=== PATIENT | male | born 1965 | race Caucasian/White ===

== ENCOUNTER 2018-01-19 09:48 | Emergency (ER) | payer MEDICAID ==
[2018-01-19 09:53] VITALS: BMI 25.7
[2018-01-19] MEDS ORDERED: Metoprolol 1 mg/ml Inj IVP STA (09:57)
[2018-01-19 10:18] VITALS: RESP 18
--- NOTE | 2018-01-19 10:22 | ED PDOC ---
Arrival/HPI - General Chief Complaint: Weakness/Neurological Deficit Time Seen by Provider: 01/19/18 09:50 Historian: Patient - History of Present Illness Narrative History of Present Illness (Text): 01/19/18 10:22 52yo male with pmhx of chronic back pain referred to ED by his PMD for generalized weakness and elevated blood pressure. Patient states his BP was elevated 3days ago when she went to see his PMD, but he is not on antihypertensive medication. States he went back to see his PMD this morning, because he felt weak and his BP was still elevated this morning. He denies focal weakness, headache, slurred speech, chest pain, dizziness, visual changes , nausea, vomiting, upper back ripping/tearing pain, any other complaint. Past Medical History - Provider Review Nursing Documentation Reviewed: Yes - Infectious Disease Hx of Infectious Diseases: None - Tetanus Immunization Tetanus Immunization: Unknown - Psychiatric Hx Substance Use: No Family/Social History - Physician Review Nursing Documentation Reviewed: Yes Family/Social History: Unknown Family HX Smoking Status: Never Smoked Hx Alcohol Use: No Hx Substance Use: No Allergies/Home Meds Allergies/Adverse Reactions: Allergies No Known Allergies Allergy (Verified 01/19/18 09:53) Home Medications: Home Meds Medication Instructions Recorded Confirmed Acetaminophen/Oxycodone Hydr 1 tab PO PRN PRN 02/19/16 01/19/18 [Percocet 10/325 mg Tab] Hydrocodone/Acetaminophen [Vicodin 1 tab PO PRN PRN 02/19/16 01/19/18 5 mg-300 mg] oxyCODONE [oxyCODONE Immediate 15 mg PO PRN PRN 02/19/16 01/19/18 Release Tab] Review of Systems - Physician Review All systems were reviewed & negative as marked: Yes - Review of Systems Constitutional: Fatigue, Other (Elevated BP) Eyes: Normal ENT: Normal Respiratory: Normal Cardiovascular: Normal Gastrointestinal: Normal Genitourinary Male: Normal Musculoskeletal: Normal Skin: Normal Neurological: Normal Endocrine: Normal Hemo/Lymphatic: Normal Psychiatric: Normal Physical Exam Vital Signs Reviewed: Yes Vital Signs Pulse Resp BP Pulse Ox 01/19/18 11:16 84 18 146/90 97 01/19/18 10:17 78 18 142/91 H 99 01/19/18 10:11 79 192/113 H 01/19/18 09:54 91 H 21 162/102 H 99 Temperature: Afebrile Blood Pressure: Hypertensive Pulse: Regular Respiratory Rate: Normal Appearance: Positive for: Well-Appearing, Non-Toxic, Comfortable Pain Distress: None Mental Status: Positive for: Alert and Oriented X 3 - Systems Exam Head: Present: Atraumatic, Normocephalic Pupils: Present: PERRL Extroacular Muscles: Present: EOMI Conjunctiva: Present: Normal Mouth: Present: Moist Mucous Membranes Neck: Present: Normal Range of Motion Respiratory/Chest: Present: Clear to Auscultation, Good Air Exchange. No: Respiratory Distress, Accessory Muscle Use Cardiovascular: Present: Regular Rate and Rhythm, Normal S1, S2. No: Murmurs Abdomen: No: Tenderness, Distention, Peritoneal Signs Back: Present: Normal Inspection Upper Extremity: Present: Normal Inspection. No: Cyanosis, Edema Lower Extremity: Present: Normal Inspection. No: Edema Neurological: Present: GCS=15, CN II-XII Intact, Speech Normal, Motor Func Grossly Intact, Normal Sensory Function, Normal Cerebellar Funct, Norm Deep Tendon Reflexes, Gait Normal, Memory Normal, Normal 2Pt Descrimination, Other ( No focal neurological deficit) Skin: Present: Warm, Dry, Normal Color. No: Rashes Psychiatric: Present: Alert, Oriented x 3, Normal Insight, Normal Concentration Medical Decision Making ED Course and Treatment: 01/19/18 11:30 52yo male bib EMS for generalized weakness and elevated BP Labs was ordered reviewed and unremarkable EKG NSR @86bpm Pt have no focal neurological deficit. He was neurologically intact in ED. His BP improved in ED with medication. He complained of back pain, which is his typical pain and toradol was given for pain control. He was DC hme with Norvasc 5mg. Advised to check his BP regularly and f/u with his PMD. - Lab Interpretations Lab Results: 01/19/18 10:11 01/19/18 10:11 Lab Results 01/19/18 10:11: Sodium 145, Potassium 4.0, Chloride 105, Carbon Dioxide 23, Anion Gap 21 H, BUN 16, Creatinine 0.7 L, Est GFR ( Amer) > 60, Est GFR ( Non-Af Amer) > 60, Random Glucose 105, Calcium 9.7, Magnesium 2.0, Total Bilirubin 0.3, AST 29, ALT 65 H, Alkaline Phosphatase 61, Lactate Dehydrogenase 444, Total Creatine Kinase 83, Troponin I < 0.01, NT-Pro-B Natriuret Pep < 11.1 , Total Protein 7.5, Albumin 4.8, Globulin 2.7, Albumin/Globulin Ratio 1.8 01/19/18 10:11: PT 10.0, INR 0.87 L, APTT 23.3 L 01/19/18 10:11: WBC 7.5, RBC 5.00, Hgb 13.9 L, Hct 41.1 L, MCV 82.2, MCH 27.8, MCHC 33.8, RDW 14.7 H, Plt Count 251, MPV 10.1, Gran % 51.6, Lymph % (Auto) 41.8 H, Barton % (Auto) 5.0, Eos % (Auto) 1.3 L, Baso % (Auto) 0.3, Gran # 3.88, Lymph # (Auto) 3.2, Barton # (Auto) 0.4, Eos # (Auto) 0.1, Baso # (Auto) 0.02 01/19/18 09:54: POC Glucose (mg/dL) 101 - Medication Orders Current Medication Orders: Discontinued Medications Ketorolac Tromethamine (Toradol) 30 mg IVP STAT STA Stop: 01/19/18 11:20 Metoprolol Tartrate (Lopressor) 5 mg IVP STAT STA Stop: 01/19/18 09:58 Last Admin: 01/19/18 10:11 Dose: 5 mg IVP Administration Document 01/19/18 10:11 CAST (Rec: 01/19/18 10:12 CAST [id number]) Charges for Administration # of IVP Administrations 1 OCT Pulse and Blood Pressure Document 01/19/18 10:11 [email or web address] (Rec: 01/19/18 10:12 [email or web address] [id number]) Pulse Pulse Rate (60-90 beats/min) 79 Blood Pressure Blood Pressure (100/60-150/90 mm Hg) 192/113 Disposition/Present on Arrival - Present on Arrival Any Indicators Present on Arrival: No History of DVT/PE: No History of Uncontrolled Diabetes: No Urinary Catheter: No History of Decub. Ulcer: No History Surgical Site Infection Following: None - Disposition Have Diagnosis and Disposition been Completed?: Yes Diagnosis: Hypertension, Weakness, Chronic back pain Disposition: HOME/ ROUTINE Disposition Time: 11:15 Patient Plan: Discharge Patient Problems: Current Active Problems Problem Status Onset Hypertension Acute Weakness Acute Condition: STABLE Discharge Instructions (ExitCare): High Blood Pressure in Adults, Controlling Your Blood Pressure Through Lifestyle, Weakness (ED) Additional Instructions: Follow up with your Doctor Return to ED for any new or worsening symptoms Prescriptions: amLODIPine [Norvasc] 5 mg PO DAILY #15 tab Referrals: Lauren Garcia MD [Primary Care Provider] - Follow up with primary Forms: [employer] (Indonesian)
[2018-01-19 10:23] LABS: BASO # 0.02 K/mm3 (0.0-2.0); BASO % 0.3 % (0.0-3.0); EOS # 0.1 (0.0-0.7); EOS % 1.3 % (1.5-5.0); GRAN # 3.88 (1.4-6.5); GRAN % 51.6 % (50.0-68.0); HEMOGLOBIN 13.9 g/dL (14.0-18.0); LYMPH # 3.2 (1.2-3.4); LYMPH % 41.8 % (22.0-35.0); MEAN CELL VOLUME 82.2 fl (80.0-105.0); MEAN CORPUSCULAR HEMOGLOBIN 27.8 pg (25.0-35.0); MEAN CORPUSCULAR HGB CONC 33.8 g/dl (31.0-37.0); MEAN PLATELET VOLUME 10.1 fl (7.0-11.0); MONO # 0.4 (0.1-0.6); RED CELL DISTRIBUTION WIDTH 14.7 % (11.5-14.5); WHITE BLOOD COUNT 7.5 10^3/ul (4.5-11.0)
[2018-01-19 10:31] LABS: ALB/GLOB RATIO 1.8 (1.1-1.8); ALBUMIN 4.8 g/dL (3.0-4.8); ALT/SGPT 65 U/L (7-56); AST/SGOT 29 U/L (17-59); BLOOD UREA NITROGEN 16 mg/dL (7-21); CALCIUM 9.7 mg/dL (8.4-10.5); GFR AFRICAN-AMERICAN > 60; GFR NON-AFRICAN AMERICAN > 60
[2018-01-19 10:42] LABS: TROPONIN I < 0.01 ng/mL
[2018-01-19 10:43] LABS: B-TYPE NATRIURETIC PEPTIDE < 11.1 pg/mL (0-450); INR 0.87 (0.93-1.08); PARTIAL THROMBOPLASTIN TIME 23.3 Seconds (25.1-36.5)
[2018-01-19 11:17] VITALS: BP 146/90
[2018-01-19 12:47] VITALS: PULSE 85; TEMP 98.2; O2SAT 98
--- NOTE | 2018-01-19 13:16 | CARD ---
APPROVED REPORT EKG Measurement Heart [id number] <Conclusion> Normal sinus rhythm Normal ECG
== END 2018-01-19 12:47 | disposition home or self-care (01) ==
LOC: ED 09:48
DX: I10 Essential (primary) hypertension (principal); R53.1 Weakness; G89.29 Other chronic pain; M54.9 Dorsalgia, unspecified
CPT/HCPCS: 80053; 82550; 82948; 83615; 83735; 83880; 84484; 85025; 85610; 85730; 93005; 96374; 96375; 99285; J1885